=== PATIENT | male | born 1955 | race Caucasian/White ===

== ENCOUNTER → 2021-02-28 09:39 | Outpatient (CLI) | payer OTHER, SELFPAY ==
--- NOTE | ~2021-02-28 | CT_ITS ---
EXAMINATION:CT diagnostic chest w con DATE: 02/28/2021 10:32 INDICATION: Squamous cell carcinoma of left lung. TECHNIQUE: Computed tomography (CT) of the chest was performed with 75 mL Omnipaque 350 intravenous c ontrast. Automated exposure control and iterative reconstruction technique were employed. The dose-le ngth product (DLP) was 487.97 mGy-cm. COMPARISON: None. FINDINGS: There are changes of complete left pneumonectomy with volume loss of the left hemithorax an d leftward shift of the mediastinum. There is a thick-walled rim-enhancing fluid collection in the le ft postpneumonectomy space, which is an expected finding. There is mild emphysema. Calcified right arina ng nodules are consistent with old granulomatous disease. There are nodules in the thyroid measuring up to 1.5 cm. The heart size is normal. There are coronary artery calcifications. No pericardial effu maira. There are gallstones in the gallbladder, which is normal in size. There is ectasia of ascending aorta measuring 4.1 cm. There are bridging endplate osteophytes at multiple levels in the spine, con sistent with diffuse idiopathic skeletal hyperostosis (DISH). There is mild thoracic spondylosis. The re are old left-sided rib deformities. IMPRESSION: 1. Complete left pneumonectomy. 2. Mild emphysema. 3. Multinodular goiter. Consider thyroid ultrasound for risk stratification. Reviewed, dictated and finalized at location B.
[2021-02-28 09:58] LABS: Estimated Glomerular Filt Rate 60
== END ==
DX: C34.92 Malignant neoplasm of unspecified part of left bronchus or lung (principal); Z90.2 Acquired absence of lung [part of]; J43.9 Emphysema, unspecified; E04.2 Nontoxic multinodular goiter
CPT/HCPCS: 71260; Q9967

== ENCOUNTER 2021-04-05 11:44 | Outpatient (CLI) | payer OTHER, SELFPAY ==
[2021-04-05 12:10] LABS: Basophils Percent Auto 0.7 % (0.2-1.2); Eosinophils Absolute Auto 0.1 K/mm3 (0-0.3); Hematocrit 39.9 % (42.0-52.0); Hemoglobin 13.6 g/dL (14.0-18.0); Immature Granulocyte Absolute 0.02 K/mm3 (0.00-0.031); Immature Granulocyte Percent A 0.3 % (0-0.5); Lymphocytes Absolute Auto 1.28 K/mm3 (0.9-3.2); Lymphocytes Percent Auto 20.8 % (18.3-44.2); Mean Corpuscular HGB Conc 34.1 g/dl (32-36); Mean Corpuscular Hemoglobin 32.6 pg (26-34); Mean Corpuscular Volume 95.7 fl (80-100); Mean Platelet Volume 9.9 fl (7.4-10.4); Monocytes Absolute Auto 0.5 K/mm3 (0.1-0.6); Neutrophils Absolute Auto 4.2 K/mm3 (1.3-6.7); Neutrophils Percent Auto 68.2 % (45.5-73.1); Platelet Count Result 145 k/mm3 (150-375); Red Blood Count 4.17 M/mm3 (4.6-6.20); Red Cell Distribution Width 12.2 % (11.5-14.5); White Blood Count 6.1 K/mm3 (4.5-10.0)
[2021-04-05 12:23] LABS: Alanine Aminotransferase 19 U/L (4-50); Albumin Level 4.2 g/dL (3.5-5.1); Alkaline Phosphatase 50 U/L (38-126); Anion Gap 7 mmol/L (8-16); Aspartate Amino Transferase 25 U/L (17-59); Bilirubin,Total 0.7 mg/dL (0.2-1.3); Blood Urea Nitrogen 24 mg/dL (9-20); Calcium 9.6 mg/dL (8.4-10.2); Carbon Dioxide 27 mmol/L (22-30); Chloride 105 mmol/L (98-107); Estimated Glomerular Filt Rate 60; Glucose 106 mg/dL (65-110); Potassium 4.8 mmol/L (3.4-5.0); Sodium 139 mmol/L (137-145)
[2021-04-05 12:52] LABS: Prostate Specific Antigen 0.6 ng/mL (< OR = 4.0); Thyroid Stimulating Hormone 0.982 uIU/mL (0.465-4.680)
[2021-04-05 12:58] LABS: Free T4 Free Thyroxine 1.28 ng/mL (0.78-2.19)
--- NOTE | 2021-04-07 09:35 | P.NEURO_ITS ---
Neurology EEG Report General Information Date of Study: 04/05/21 TEST eeg DIAGNOSIS Dementia CONDITION OF RECORDING awake drowsy and sleep EEG NUMBER [id number] CLINICAL HISTORY patient reported he has been having an issue with aphasia and memory loss for the last year or 2 EEG DESCRIPTION basic resting occipital frequency consists of large amount of well-organized low voltage to medium voltage 8 to 10 hertz per 2nd alpha admixed with low-vo ltage 15 to 18 hertz per 2nd beta. Bilateral symmetrical sleep activity seen. Multiple movement artifacts are also noted including the eye movements artifacts. Hyperventilation not done. Photic stimulation produced normal drive. Non paroxysmal. Nonfocal. Nonlateralizing. IMPRESSION No significant abnormalities noted
== END 2021-04-05 11:45 | disposition home or self-care (01) ==
PROVIDERS: PCP Internal Medicine; Referring Provider Internal Medicine; Visit Provider Psychiatry & Neurology Neurology
DX: Z12.5 Encounter for screening for malignant neoplasm of prostate (principal); F03.90 Unspecified dementia, unspecified severity, without behavioral disturbance, psychotic disturbance, mood disturbance, and anxiety; I10 Essential (primary) hypertension
CPT/HCPCS: 36415; 80053; 82607; 84153; 84439; 84443; 85025; 95816; G0103

== ENCOUNTER → 2021-04-05 14:46 | Outpatient (CLI) | payer OTHER, SELFPAY ==
--- NOTE | ~2021-04-05 | MR_ITS ---
EXAMINATION: MR brain/brain stem wo con EXAM DATE: 04/05/2021 15:50 INDICATION: F03.90 - Unspecified dementia without behavioral disturbance. States history of fall in [place] hitting head. Speech impairment for 3 years progressing. TECHNIQUE: Magnetic resonance imaging (MRI) of the brain/brain stem obtained without contrast. iNyah florentino T1, axial diffusion, gradient echo (T2*), T1, T2, FLAIR sequences obtained. There is no prior st udy for comparison. FINDINGS: There are no areas of restricted diffusion to suggest acute infarction. There is no acute hemorrhage seen on the T2*, a hemosiderin sensitive sequence. No intraparenchymal brain mass lesion. There is mild periventricular and subcortical T2/FLAIR signal hyperintensity, nonspecific but probab ly related to small vessel ischemic disease (microangiopathy). There is mild prominence of the sulc i and ventricles related to cerebral atrophy. There are no extra-axial collections. Flow voids are seen in the cerebral arteries on the T2-weighted sequences consistent with their expected patency. The orbits are unremarkable. Soft tissue is unremarkable. IMPRESSION: Mild age-related intracranial findings. Reviewed, dictated and finalized at location B.
== END ==
PROVIDERS: PCP Internal Medicine; Visit Provider Psychiatry & Neurology Neurology
DX: F03.90 Unspecified dementia, unspecified severity, without behavioral disturbance, psychotic disturbance, mood disturbance, and anxiety (principal)
CPT/HCPCS: 70551

== ENCOUNTER → 2022-02-13 10:51 | Outpatient (CLI) | payer OTHER, SELFPAY ==
--- NOTE | ~2022-02-13 | CT_ITS ---
EXAMINATION: CT diagnostic chest w con DATE: 02/13/2022 11:27 INDICATION: Restaging of squamous cell carcinoma of the left lung TECHNIQUE: Computed tomography (CT) of the chest was performed with 75 CC Omnipaque 350 intravenous c ontrast. Automated exposure control and iterative reconstruction technique were employed. Exam dose: 501.40 mGy-cm total exam DLP. COMPARISON: 02/28/2021 CT chest FINDINGS: Status post left pneumonectomy. There is associated leftward shift of heart and mediastinum . No right pulmonary infiltrate or consolidation or right lung mass lesion. Mild emphysema. Coronary artery calcifications. No thoracic aortic dissection. No pericardial effusion. No right pleu ral effusion. No hilar or mediastinal mass lesion or lymphadenopathy. Normal morphology of the adrenal glands. Cholelithiasis is noted. Diffuse idiopathic skeletal hyperostosis of the thoracic spine. No suspicious osteolytic or osteoblas tic lesions are noted. IMPRESSION: Status post left pneumonectomy for lung cancer; no metastatic disease is noted. Mild emphysema. Cholelithiasis Reviewed, dictated and finalized at [facility]. Reviewed, dictated and finalized at location B. IMPRESSION: Status post left pneumonectomy for lung cancer; no metastatic dise ase is noted. Mild emphysema. Cholelithiasis
[2022-02-13 11:12] LABS: Estimated Glomerular Filt Rate > 60
== END ==
PROVIDERS: PCP Internal Medicine; Visit Provider Nurse Practitioner Acute Care
DX: C34.92 Malignant neoplasm of unspecified part of left bronchus or lung (principal); Z90.2 Acquired absence of lung [part of]; J43.9 Emphysema, unspecified; K80.20 Calculus of gallbladder without cholecystitis without obstruction
CPT/HCPCS: 71260; Q9967

== ENCOUNTER → 2022-05-11 10:28 | Outpatient (CLI) | payer OTHER, SELFPAY ==
--- NOTE | ~2022-05-11 | XR_ITS ---
EXAMINATION: XR barium swallow DATE: 05/11/2022 11:16 CDT INDICATION: Dysphagia. Post pneumonectomy 5 years ago. TECHNIQUE: Thick barium contrast with gas effervescent crystals were administered orally. Fluoroscop ic images of the esophagus were obtained in various projections. The hypopharynx was also examined. T hereafter, overhead images of the thoracic esophagrus were performed. Fluroscopy time 0.6 minutesDap 3.26. 47 fluoroscopic images. FINDINGS: There is an upper esophageal diverticulum. There are tertiary contractions of the mid and d istal esophagus, consistent with presbyesophagus. There is a small hiatal hernia. No discreet episod e of gastroesophageal reflux is seen during the course of this study. IMPRESSION: 1. Small diverticulum of the upper esophagus. 2: Tertiary contractions, consistent with presbyesophagus. No obstructionor stricture. 3: Small hiatal hernia. Reviewed, dictated and finalized at location B. IMPRESSION: 1. Small diverticulum of the upper esophagus. 2: Tertiary contractions, consistent with presbyesophagus. No obstructionor st ricture. 3: Small hiatal hernia.
== END ==
PROVIDERS: PCP Internal Medicine; Visit Provider Nurse Practitioner Acute Care
DX: R13.10 Dysphagia, unspecified (principal); K44.9 Diaphragmatic hernia without obstruction or gangrene; Q39.6 Congenital diverticulum of esophagus
CPT/HCPCS: 74220